=== PATIENT | female | born 2000 | race Caucasian/White ===

== ENCOUNTER 2022-12-02 16:23 | Emergency (ER) | payer OTHER, SELFPAY ==
--- NOTE | 2022-12-02 16:24 | ED.URI ---
HPI - URI/Sore Throat General Chief Complaint: Upper Respiratory Infection Stated Complaint: congestion,runny nose,sinus pressure Time Seen by Provider: 12/02/22 16:24 Source: patient Mode of arrival: ambulatory Limitations: no limitations History of Present Illness HPI Narrative: Chirag is a 22-year-old female patient presenting to the clinic today with complaints of cough, congestion, runny nose, sinus pressure x2 weeks. She reports she is blowing out green nasal drainage. States that she has tried Flonase, [id number] antihistamine, Sudafed, and sinus rinses. MD elicited complaint: cough, rhinorrhea, nasal congestion and sinus pain Related Data Home Medications Medication Instructions Recorded Confirmed albuterol sulfate 90 mcg/actuation 1 inh inhalation Q4-6H PRN Wheezing 10/27/22 12/02/22 breath activated powder inhaler cholecalciferol (vitamin D3) 1,250 1,250 mcg PO WEEKLY 10/27/22 12/02/22 mcg (50,000 unit) capsule medroxyprogesterone 150 mg/mL 150 mg IM [id number] 10/27/22 12/02/22 intramuscular syringe (Depo-Provera) Allergies Allergy/AdvReac Type Severity Reaction Status Date / Time erythromycin base Allergy Unknown Verified 12/02/22 16:33 [From Pediazole] sulfisoxazole Allergy Unknown Verified 12/02/22 16:33 [From Pediazole] ERYTHROMYCIN ETHYLSUCCINATE Allergy Unknown Unknown Uncoded 12/02/22 16:34 SULFISOXAZOLE ACETYL Allergy Unknown Unknown Uncoded 12/02/22 16:34 Review of Systems Review of Systems: Pertinent positives per HPI. Patient denies any fever, chills, rash, visual changes, dizziness, shortness of breath, chest pain, palpitations, nausea, vomiting, diarrhea, constipation, abdominal pain, or any urinary issues. [facility] Family History Family History Father Depression Mother Asthma Grandparent Asthma Hypertension Grandparent Diabetes mellitus Hypertension Thyroid disorder Social History Social History Smoking status: Never smoker Alcohol intake: never Lack of Transportation: No Lack of Food: Never True Current Housing: I Have Housing Concerned About Future Housing: No Difficulty Paying Gas/Electric Bills: No Difficulty Paying for Meds: No Currently Unemployed: No Education: High School Diploma/GED Difficulty w/ Childcare or Family Care: No Comments At the time of my signature, I reviewed and agree with the nursing past medical, surgical, social, and family history. There is no relevant family history pertinent to the patient complaint. Exam Narrative: General: Well-developed, well nourished, in no apparent distress Head: Normocephalic, atraumatic Eyes: Pupils equally round and reactive to light bilaterally, EOM intact, sclera and conjunctive clear, no discharge, lids normal Ears: TMs intact and congested, ear canals clear, no drainage, grossly hearing normal. Nose: Nares patent, green nasal discharge, moderate inflammation, maxillary and frontal sinus tenderness. Mouth: Oral pharynx without lesions or masses, good dentition, MMM. Postnasal drip Neck: Supple, trachea midline, no enlargement of anterior or posterior cervical nodes, no thyroid masses or goiter palpable. Cardio: Regular rate and rhythm, s1 and s2 normal, no murmur appreciated. Resp: Clear to auscultation bilaterally, no rhonchi, rales, wheezing or rubs Course Course Emergency Course: Portions of this record may have been created with voice recognition software. Level of Care: Express Care Visit Vital Signs Vital signs: Vital signs reviewed MDM - URI/Sore Throat MDM Narrative Medical decision making narrative: At the time of visit patient is resting comfortably on the exam table. I suspect patient has acute bacterial rhinosinusitis. Prescription for Augmentin and prednisone was sent to the pharmacy and supportive measure
[2022-12-02 16:34] VITALS: BP 122/86; PULSE 95; RESP 16; TEMP 36.9; O2SAT 100
[2022-12-02 16:35] VITALS: BP 122/86; PULSE 95; RESP 16; TEMP 36.9; O2SAT 100
== END 2022-12-02 16:44 | disposition home or self-care (01) ==
PROVIDERS: Emergency Provider Nurse Practitioner Family; PCP Pediatrics
DX: J01.90 Acute sinusitis, unspecified (principal)
CPT/HCPCS: 99213; G0463

== ENCOUNTER 2023-02-20 16:49 | Emergency (ER) | payer OTHER, SELFPAY ==
[2023-02-20 17:05] VITALS: BP 114/80; PULSE 121; RESP 16; TEMP 36.8; O2SAT 99
--- NOTE | 2023-02-20 17:05 | ED.URI ---
HPI - URI/Sore Throat General Chief Complaint: Upper Respiratory Infection Stated Complaint: Strep symptoms Time Seen by Provider: 02/20/23 17:05 Source: patient, RN notes reviewed and old records reviewed Mode of arrival: ambulatory Limitations: no limitations History of Present Illness HPI Narrative: 22-year-old female presents to the [facility] with complaints of a sore throat since Monday. Had been taking Tylenol and Sudafed with no relief. Has a history of strep. Is scheduled to get her tonsils removed in April by Dr. Meraz Related Data Home Medications Medication Instructions Recorded Confirmed cholecalciferol (vitamin D3) 1,250 1,250 mcg PO WEEKLY 10/27/22 02/20/23 mcg (50,000 unit) capsule medroxyprogesterone 150 mg/mL 150 mg IM [id number] 10/27/22 02/20/23 intramuscular syringe (Depo-Provera) Allergies Allergy/AdvReac Type Severity Reaction Status Date / Time erythromycin base Allergy Unknown Verified 02/20/23 17:05 [From Pediazole] sulfisoxazole Allergy Unknown Verified 02/20/23 17:05 [From Pediazole] ERYTHROMYCIN ETHYLSUCCINATE Allergy Unknown Unknown Uncoded 02/20/23 17:05 SULFISOXAZOLE ACETYL Allergy Unknown Unknown Uncoded 02/20/23 17:05 Review of Systems Review of Systems: All systems reviewed & are unremarkable except as noted in HPI and below Constitutional: Constitutional: Reports no additional constitutional complaints Eyes: Eyes: Reports no additional eye complaints ENT: Reports as per HPI and Reports sore throat Cardiovascular: Cardiovascular: Reports no additional cardiovascular complaints, Denies chest pain and Denies dyspnea Respiratory: Respiratory: Reports no additional respiratory complaints, Denies chest congestion, Denies cough and Denies dyspnea Gastrointestinal: Gastrointestinal: Reports no additional gastrointestinal complaints, Denies abdominal pain, Denies nausea and Denies vomiting Musculoskeletal: Musculoskeletal: Reports no additional musculoskeletal complaints Integumentary/Breasts: Skin/Breast: Reports system reviewed and no additional complaints, except as docu Neurologic: Reports system reviewed and no additional complaints, except as documented Psychiatric: Psychiatric: Reports no additional psychiatric complaints Allergic/Immunologic: Allergic/Immunologic: Reports no additional allergic/immunologic complaints PMFSH Family History Family History Father Depression Mother Asthma Grandparent Asthma Hypertension Grandparent Diabetes mellitus Hypertension Thyroid disorder Social History Social History Smoking status: Never smoker Alcohol intake: never Lack of Transportation: No Lack of Food: Never True Current Housing: I Have Housing Concerned About Future Housing: No Difficulty Paying Gas/Electric Bills: No Difficulty Paying for Meds: No Currently Unemployed: No Education: High School Diploma/GED Difficulty w/ Childcare or Family Care: No Comments At the time of my signature, I reviewed and agree with the nursing past medical, surgical, social, and family history. There is no relevant family history pertinent to the patient complaint. Exam Const: General: cooperative, healthy appearing, comfortable, no acute distress, well developed, alert and well nourished Nutritional Appearance: well nourished Orientation/consciousness: patient oriented x3 Limitations: no limitations HENMT: Head: normal to inspection Ears: hearing grossly normal bilaterally and external ears normal Face/Nose/Sinus: Normal external nose present, Normal nares present, Normal nasal mucous membranes and turbinates present and normal facial exam Face and sinus: normal facial exam Mouth: Yes Normal oral and palatal mucosa present, Yes lip normal and Yes moist mucous membranes Throat: posterior oropharynx normal, uvula midline and
[2023-02-20 17:06] VITALS: BP 114/80; PULSE 121; RESP 16; TEMP 36.8; O2SAT 99
== END 2023-02-20 17:23 | disposition home or self-care (01) ==
PROVIDERS: Emergency Provider Nurse Practitioner
DX: J02.0 Streptococcal pharyngitis (principal)
CPT/HCPCS: 87880; 99213; G0463

== ENCOUNTER 2023-04-18 00:11 | Day surgery (SDC) | payer OTHER, SELFPAY ==
[2023-04-05 12:28] VITALS: BMI 25.8
--- NOTE | 2023-04-05 12:32 | PC.NURSE ---
Report to the Outpatient Waiting Room, entrance under the green pavilion located off [facility], at time 0700 on date 04/18/23. Planned Procedure Time: 0900. Time changes happen often and if your time is changed the preop area will call you the afternoon before. - You and your visitor will be asked to self-screen and do not enter if you have any COVID symptoms. - A mask is optional within the hospital at this time. Patients may have clear liquids (water, carbonated beverages, clear teas, apple juice) until 3 hours prior to surgery with a maximum of 20 ounces. - No food from midnight until time of surgery Take the following medications with a SIP of water the morning of surgery: NONE DO NOT STOP ANY OF YOUR OTHER PRESCRIPTION MEDICATIONS PRIOR TO SURGERY ?EXCEPT THE FOLLOWING Medications to discontinue per physician: N/A Date to take last dose: N/A Please no make-up, nail [place] citizen, hairspray, perfume, deodorant, or body powder the day of surgery. No jewelry (including any body piercings) or valuables the day of surgery, leave them at home. Please take a shower or bath the night before, or the morning of, surgery with an antibacterial soap. Wear comfortable, loose fitting clothing. - Jewelry must be removed prior to entering the operating room. Rings and piercings that are not removed may be cut off. - The hospital will not accept responsibility for valuables. - Please leave all valuables, including medications, at home the day of surgery. If you are going home after surgery, a licensed tow truck driver must drive you home. - NO public transportation without another adult if you receive anesthesia. - We recommend that an adult stay with you for 24 hours following discharge. - We also recommend that you do not drive, make important decision, drink alcoholic beverages, or take any drugs that were not prescribed by your health care provider for at least 24 hours after your discharge time. Follow any additional instructions given to you from your surgeon. If you or anyone in your household have experienced Covid symptoms in the past week, please notify your surgeon or the nurse liaison at the phone number below for possible testing. Telephone instructions given to PT - AMOR OSMAN and asked if any additional questions and then verbalized understanding. Patient advised to call surgeon office or pre surgery nurse liaison [phone] if any additional questions.
--- NOTE | 2023-04-17 15:18 | PM.IMHP ---
H&P: HPI History of Present Illness Date/Time: 04/17/23 15:18 Chief Complaint: recurrent strep adenoid hypertrophy snoring tonsillar hypertrophy Narrative: planned procedure Review of Systems Review of Systems: All systems reviewed & are unremarkable except as noted in HPI and below PMFSH Family History Family History Father Depression Mother Asthma Grandparent Asthma Hypertension Grandparent Diabetes mellitus Hypertension Thyroid disorder Social History Social History Years smoked: 6 Smoking status: Former smoker Tobacco type: cigarettes Smoking end date: 07/03/18 Alcohol intake: current Alcohol use details: VERY RARE Substance use: never Substance use type: does not use Lack of Transportation: No Lack of Food: Never True Current Housing: I Have Housing Concerned About Future Housing: No Difficulty Paying Gas/Electric Bills: No Difficulty Paying for Meds: No Currently Unemployed: No Education: High School Diploma/GED Difficulty w/ Childcare or Family Care: No Living arrangements: with friend(s) Additional living arrangements comments: BOYFRIEND Spiritual care concerns: No Meds Home Medications and Allergies Home Medications Medication Instructions Recorded Confirmed Type medroxyprogesterone 150 mg/mL 150 mg IM [id number] 10/27/22 04/05/23 History intramuscular syringe (Depo-Provera) Allergies Allergy/AdvReac Type Severity Reaction Status Date / Time erythromycin base Allergy Unknown Verified 04/05/23 12:27 [From Pediazole] sulfisoxazole Allergy Unknown Verified 04/05/23 12:27 [From Pediazole] Exam Narrative: large tonsils large adenoid Assessment and Plan Assessment and plan (1) Adenoid hypertrophy: Code(s): J35.2 - Hypertrophy of adenoids Status: Acute Assessment and Plan: ?planned OR tonsillectomy adenoidectomy risks discussed including bleeding infection damage to surrounding structures in here risks narcotic use damage to any structure above the clavicles by myself damage to any structure during the induction and remains of anesthesia including vocal cords.? 3-5% chance of postoperative bleeding change in swallow change in taste these can be permanent and or take months to resolve. (2) Snoring: Code(s): R06.83 - Snoring Status: Acute (3) Recurrent tonsillitis: Code(s): J03.91 - Acute recurrent tonsillitis, unspecified Status: Acute
[2023-04-18] VITALS (9 sets, daily range): BP systolic 116–127; BP diastolic 68–92; PULSE 85–114; RESP 15–20; TEMP 37–37.2; O2SAT 98–100
--- NOTE | 2023-04-18 07:18 | WPDHPUPDATE1 ---
History and Physical Update Update Date/Time: 04/18/23 07:18 History and Physical has been reviewed, including an updated exam of the patient. There are NO changes in the patient's condition. Risks, benefits, and alternatives have been discussed and questions answered. Patient agrees to proceed with procedure.
[2023-04-18] MEDS: LACTATED RINGERS 1,000 ML 30 ML IV CONT ×2 (07:50→10:40)
[2023-04-18] MEDS: ACETAMINOPHEN 500 MG TABLET 1000 MG PO (08:05)
[2023-04-18] MEDS: SCOPOLAMINE 1.5 MG PATCH TRANSDERM (08:05)
--- NOTE | 2023-04-18 08:26 | P.PNAN_ITS ---
Anes - Initial Pre Proc Eval Procedure: Operation Date: 04/18/23 09:00 Proposed Procedures p Tonsillectomy And Adenoidectomy - Jb Meraz MD Date/Time: 04/18/23 08:26 Surgeon: Jb Meraz MD Pre Op Diagnosis: Chr Tonsillitis, Hypertrophic Adenoids Patient Data Age: 23 Gender: F Height: 1.7 m Weight: 74.8 kg Last Vital Signs Temp 37.2 C 04/18/23 08:05 Pulse 108 H 04/18/23 08:05 Resp 16 04/18/23 08:05 BP 116/79 04/18/23 08:05 Pulse Ox 100 04/18/23 08:05 O2 Del Method Room Air 04/18/23 08:05 Allergies Allergy/AdvReac Type Severity Reaction Status Date / Time erythromycin base Allergy Unknown Verified 04/18/23 08:06 [From Pediazole] sulfisoxazole Allergy Unknown Verified 04/18/23 08:06 [From Pediazole] Home Medications Medication Instructions Recorded Confirmed Type medroxyprogesterone 150 mg/mL 150 mg IM [id number] 10/27/22 04/05/23 History intramuscular syringe (Depo-Provera) Patient hx anesthesia problems: none Family hx anesthesia problems: none Results Review: All pre-operative results and documents have been reviewed as part of the pre- operative evaluation. [facility] Family History Family History Father Depression Mother Asthma Grandparent Asthma Hypertension Grandparent Diabetes mellitus Hypertension Thyroid disorder Social History Social History Years smoked: 6 Smoking status: Former smoker Tobacco type: cigarettes Smoking end date: 07/03/18 Alcohol intake: current Alcohol use details: VERY RARE Substance use: never Substance use type: does not use Lack of Transportation: No Lack of Food: Never True Current Housing: I Have Housing Concerned About Future Housing: No Difficulty Paying Gas/Electric Bills: No Difficulty Paying for Meds: No Currently Unemployed: No Education: High School Diploma/GED Difficulty w/ Childcare or Family Care: No Living arrangements: with friend(s) Additional living arrangements comments: BOYFRIEND Spiritual care concerns: No Anes - Eval Final PreProcedure Day of Procedure 04/18/23 08:26 Patient weight: normal Heart: regular rate and rhythm Lungs: clear to auscultation Airway: Mallampati scale class 1 Neurological: alert and oriented Last oral intake: >/= 8 hours ASA classification: II Emergent: no Anesthetic plan: proceed Anesthesia type and monitoring: general ETT and standard monitoring Results Review: All pre-operative results and documents have been reviewed as part of the pre- operative evaluation. Informed Consent: The patient's anesthetic plan and its attendant risks and benefits were discussed with the patient/family/POA. Questions were solicited and answers provided to the satisfaction of the patient/family/POA.
[2023-04-18] MEDS: fentaNYL CITRATE INJ (*CRX) 100 MCG/2 ML VIAL 25 MCG IV PUSH ×5 (10:49→12:09)
--- NOTE | 2023-04-18 10:51 | W.PM.PROC2 ---
Procedure Note - Detailed Date of Procedure 04/18/23 Pre-op Diagnosis Chr Tonsillitis, Hypertrophic Adenoids Post-op Diagnosis Same Procedure Performed Tonsillectomy Surgeon Jb Meraz MD Anesthesia General Indications See above Findings Very very vascularized large tonsils. Adenoids absent Description of Procedure Patient identified consent verified preop. Patient brought to the operating room. Time-out performed. General anesthesia induced endotracheal tube secured. Patient prepped draped position procedure confirmed. Second time-out performed. McIvor mouth gag inserted reveal tonsils described above. They were removed bilaterally in the extracapsular plane using Bovie electrocautery at a setting of 8. Any bleeding was controlled Bovie suction electrocautery setting of 10 12 in 15. The right side superiorly had a very large bridging vein entering the tonsil which had to be taken through the superior pole or 2 the superior pole. This took about 10 minutes of cautery. Bleeding was still minimal about 5 cc of blood loss. After the tonsils were out red rubber catheters inserted adenoids were examined they were absent. Red rubber catheters removed. McIvor mouth gag lowered for 30 seconds and reopened to reveal no further bleeding. Patient tolerated the procedure well blood loss about 5 cc. No complications. Care the patient given back to Anesthesiology I performed all dictated portions of the procedure. Estimated Blood Loss 5 Drains No Packing No Pathology Yes Complications No immediate complications Condition Stable Disposition PACU [facility] - Charge Forward: Surgery Billing
[2023-04-18] MEDS: ONDANSETRON INJ 4 MG/2 ML VIAL IV PUSH (11:26)
[2023-04-18] MEDS: diphenhydrAMINE HCl INJ 50 MG/ML VIAL 25 MG IV PUSH (11:59)
--- NOTE | 2023-04-18 12:02 | SUR.PHASEII ---
Addendum entered by Becky Lafleur RN 04/18/23 12:19: 1200 Pt had emesis x 1 Original Note: Pt nauseous despite scopalamine patch and zofran given. Pt states chronic nausea due to acid reflux. Dr. Ballard anesthesia notified. New order received for Benadryl.
== END 2023-04-18 13:08 | disposition home or self-care (01) ==
PROVIDERS: Visit Provider Otolaryngology
PROC: (CPT 42826; principal; 2023-04-18 09:00)
DX: J35.01 Chronic tonsillitis (principal); Z87.891 Personal history of nicotine dependence
CPT/HCPCS: 42826; 88304; A9270; J1100; J1200; J2250; J2405; J2704; J3010; J7120

== ENCOUNTER 2023-06-11 09:40 | Emergency (ER) | payer OTHER, SELFPAY ==
[2023-06-11 09:53] VITALS: BP 114/83; PULSE 103; RESP 16; TEMP 37.1; O2SAT 99
--- NOTE | 2023-06-11 10:16 | ED.URI ---
HPI - URI/Sore Throat General Chief Complaint: Upper Respiratory Infection Stated Complaint: Upper respiratory infection Time Seen by Provider: 06/11/23 10:07 Source: patient and RN notes reviewed Mode of arrival: ambulatory Limitations: no limitations History of Present Illness HPI Narrative: Patient presents today with 2 week history of cough, congestion, sinus pressure. Denies fever or sore throat. She had her tonsils removed approximately 2 months ago. She has been taking Sudafed and Benadryl as willingness using her albuterol inhaler with mild relief Related Data Home Medications Medication Instructions Recorded Confirmed medroxyprogesterone 150 mg/mL 150 mg IM [id number] 10/27/22 04/05/23 intramuscular syringe (Depo-Provera) Allergies Allergy/AdvReac Type Severity Reaction Status Date / Time erythromycin base Allergy Unknown Verified 04/18/23 08:06 [From Pediazole] sulfisoxazole Allergy Unknown Verified 04/18/23 08:06 [From Pediazole] Review of Systems Review of Systems: CONSTITUTIONAL: Denies body aches, fever, chills, or sweats. EYES: Denies visual changes, redness, or discharge. ENT: Denies rhinorrhea, sore throat, or otalgia.+ congestion, sinus pressure CARDIOVASCULAR: Denies chest pain, palpitations, or edema. RESPIRATORY: Denies dyspnea.+ cough GASTROINTESTINAL: Denies abdominal pain, nausea, vomiting, or diarrhea. GENITOURINARY: Denies dysuria or hematuria. SKIN: Denies rash, itching, or wounds. MUSCULOSKELETAL: Denies back pain, joint pain, or myalgia. NEUROLOGIC: Denies headache, numbness, tingling, or weakness. PSYCH: Denies depression or anxiety. [facility] Surgical History Surgical History (Updated 06/11/23 @ 10:17 by Darleen Arnold, FRANDY, MAGGI) Hx of tonsillectomy Family History Family History Father Depression Mother Asthma Grandparent Asthma Hypertension Grandparent Diabetes mellitus Hypertension Thyroid disorder Social History Social History Years smoked: 6 Smoking status: Former smoker Tobacco type: cigarettes Smoking end date: 07/03/18 Alcohol intake: current Alcohol use details: VERY RARE Substance use: never Substance use type: does not use Lack of Transportation: No Lack of Food: Never True Current Housing: I Have Housing Concerned About Future Housing: No Difficulty Paying Gas/Electric Bills: No Difficulty Paying for Meds: No Currently Unemployed: No Education: High School Diploma/GED Difficulty w/ Childcare or Family Care: No Living arrangements: with friend(s) Additional living arrangements comments: BOYFRIEND Spiritual care concerns: No Comments At time of signature, I have reviewed and agree with nursing past medical, surgical, social and family history unless otherwise noted. Please see nursing chart for further information. There is no relevant family history pertinent to the presenting complaint Exam Narrative: GENERAL: Mildly ill-appearing, well-nourished, and in no acute distress. HEAD: Normocephalic, atraumatic. EYES: EOMI. No redness or drainage. Conjunctivae normal. ENT: Mucous membranes pink and moist. Nares congested with rhinorrhea. Bilateral maxillary sinus tenderness. tMs normal bilaterally. Throat normal. Uvula midline. NECK: Normal AROM. Supple. No lymphadenopathy. CHEST: No respiratory distress. Clear to auscultation. HEART: Regular rate and rhythm. No murmur appreciated. EXTREMITIES: Normal range of motion. No edema. SKIN: Warm, dry, no rash. Capillary refill normal. Normal skin turgor. NEURO: No focal deficits. Alert and oriented x3. Gait steady. PSYCH: Normal affect. No signs of depression or anxiety. Course Course Level of Care: Express Care Visit Vital Signs Vital signs: Vital Signs Temperature 98.7 F 06/11/23 09:53 Pul
== END 2023-06-11 10:22 | disposition home or self-care (01) ==
PROVIDERS: Emergency Provider Nurse Practitioner
DX: J40 Bronchitis, not specified as acute or chronic (principal); J01.00 Acute maxillary sinusitis, unspecified; Z87.891 Personal history of nicotine dependence
CPT/HCPCS: 99213; G0463

== ENCOUNTER 2023-08-07 16:35 | Emergency (ER) | payer OTHER, SELFPAY ==
[2023-08-07 16:40] VITALS: BP 134/86; PULSE 102; RESP 16; TEMP 36.8; O2SAT 99
--- NOTE | 2023-08-07 17:15 | ED.URI ---
HPI - URI/Sore Throat General Chief Complaint: Upper Respiratory Infection Stated Complaint: Congestion Time Seen by Provider: 08/07/23 17:05 Source: patient and RN notes reviewed Mode of arrival: ambulatory Limitations: no limitations History of Present Illness HPI Narrative: Patient presents today complaining of a 6 day history of congestion, sinus pressure, postnasal drip, left ear pain, upper teeth pain. Denies fever sore throat. She has been taking Sudafed, Benadryl, buttocks, DayQuil, NyQuil with some short-term relief. Related Data Home Medications Medication Instructions Recorded Confirmed medroxyprogesterone 150 mg/mL 150 mg IM [id number] 10/27/22 04/05/23 intramuscular syringe (Depo-Provera) Allergies Allergy/AdvReac Type Severity Reaction Status Date / Time erythromycin base Allergy Unknown Verified 04/18/23 08:06 [From Pediazole] sulfisoxazole Allergy Unknown Verified 04/18/23 08:06 [From Pediazole] Review of Systems Review of Systems: CONSTITUTIONAL: Denies body aches, fever, chills, or sweats. EYES: Denies visual changes, redness, or discharge. ENT: Denies rhinorrhea, sore throat. + congestion, sinus pressure, postnasal drip, left ear pain CARDIOVASCULAR: Denies chest pain, palpitations, or edema. RESPIRATORY: Denies cough or dyspnea. GASTROINTESTINAL: Denies abdominal pain, nausea, vomiting, or diarrhea. GENITOURINARY: Denies dysuria or hematuria. SKIN: Denies rash, itching, or wounds. MUSCULOSKELETAL: Denies back pain, joint pain, or myalgia. NEUROLOGIC: Denies headache, numbness, tingling, or weakness. PSYCH: Denies depression or anxiety. [facility] Surgical History Surgical History Hx of tonsillectomy Family History Family History Father Depression Mother Asthma Grandparent Asthma Hypertension Grandparent Diabetes mellitus Hypertension Thyroid disorder Social History Social History Years smoked: 6 Smoking status: Former smoker Tobacco type: cigarettes Smoking end date: 07/03/18 Alcohol intake: current Alcohol use details: VERY RARE Substance use: never Substance use type: does not use Lack of Transportation: No Lack of Food: Never True Current Housing: I Have Housing Concerned About Future Housing: No Difficulty Paying Gas/Electric Bills: No Difficulty Paying for Meds: No Currently Unemployed: No Education: High School Diploma/GED Difficulty w/ Childcare or Family Care: No Living arrangements: with friend(s) Additional living arrangements comments: BOYFRIEND Spiritual care concerns: No Comments At time of signature, I have reviewed and agree with nursing past medical, surgical, social and family history unless otherwise noted. Please see nursing chart for further information. There is no relevant family history pertinent to the presenting complaint Exam Narrative: GENERAL: Mildly ill-appearing, well-nourished, and in no acute distress. HEAD: Normocephalic, atraumatic. EYES: EOMI. No redness or drainage. Conjunctivae normal. ENT: Mucous membranes pink and moist. Nares congested. Bilateral nasal turbinates are erythematous with purulent discharge. Bilateral frontal and maxillary sinus tenderness. No rhinorrhea. TMs normal bilaterally. Throat normal. Uvula midline. NECK: Normal AROM. Supple. No lymphadenopathy. CHEST: No respiratory distress. Clear to auscultation. HEART: Regular rate and rhythm. No murmur appreciated. EXTREMITIES: Normal range of motion. No edema. SKIN: Warm, dry, no rash. Capillary refill normal. Normal skin turgor. NEURO: No focal deficits. Alert and oriented x3. Gait steady. PSYCH: Normal affect. No signs of depression or anxiety. Course Course Level of Care: Express Care Visit Vital Signs
== END 2023-08-07 17:22 | disposition home or self-care (01) ==
PROVIDERS: Emergency Provider Nurse Practitioner
DX: J01.90 Acute sinusitis, unspecified (principal); Z87.891 Personal history of nicotine dependence
CPT/HCPCS: 99213; G0463

== ENCOUNTER 2024-04-20 00:21 | Emergency (ER) | payer OTHER, SELFPAY ==
[2024-04-20] VITALS (7 sets, daily range): BP systolic 129; BP diastolic 79; PULSE 83–98; RESP 10–20; TEMP 36.6; O2SAT 98–100
--- NOTE | ~2024-04-20 | XR_ITS ---
EXAMINATION: XR chest 1V portable 04/20/2024 01:10 INDICATION: EXAMINATION: XR chest 1V portable 04/20/2024 01:10 INDICATION: Chest pain PROCEDURE: AP portable chest COMPARISON: 01/14/2019 FINDINGS: The lungs are clear. The cardiomediastinal silhouette is within normal limits. There are no pleural effusions. There is no pneumothorax suspected. IMPRESSION: 1: NO ACUTE CARDIOPULMONARY DISEASE. PROCEDURE: COMPARISON: FINDINGS: The lungs are clear. The cardiomediastinal silhouette is within normal limits. There are no pleural effusions. There is no pneumothorax suspected. IMPRESSION: 1: NO ACUTE CARDIOPULMONARY DISEASE. Reviewed, dictated and finalized at location B. IMPRESSION: 1: NO ACUTE CARDIOPULMONARY DISEASE. PROCEDURE: COMPARISON: FINDINGS: The lungs are clear. The cardiomediastinal silhouette is within norm al limits. There are no pleural effusions. There is no pneumothorax suspected .
--- NOTE | 2024-04-20 00:46 | ECG_ITS ---
Test Date: 2024-04-20 01:18:45 Measurements Intervals Ord Rate: 85 P: 16 NV: 136 QRS: 97 QRSD: 88 T: 40 QT: 367 QTc: 439 Interpretive Statements SINUS RHYTHM BORDERLINE RIGHT AXIS DEVIATION [QRS AXIS > 90] LOW-VOLTAGE QRS BORDERLINE ECG No previous ECG available for comparison Electronically Signed On 04-20-2024 09:50:20 CDT by Gal Tate M.D.
--- NOTE | 2024-04-20 00:46 | ED.GENADULT ---
HPI - General Adult General Chief complaint: Unspecified Stated complaint: severe pain left shoulder pain, going into back Time Seen by Provider: 04/20/24 00:37 Source: patient Mode of arrival: ambulatory Limitations: no limitations History of Present Illness HPI narrative: 24-year-old here with left shoulder pain. Describes it is the back of her left shoulder nor left upper back. Started this morning when she woke up from sleep. Progressively worsened throughout the day. Cannot recall any injury. It feels a bit better when she squeezes the back of her arm. Nothing seems to make it much worse. Related Data Allergies Allergy/AdvReac Type Severity Reaction Status Date / Time erythromycin base Allergy Unknown Verified 04/20/24 00:30 [From Pediazole] sulfisoxazole Allergy Unknown Verified 04/20/24 00:30 [From Pediazole] Review of Systems Review of Systems: All systems reviewed & are unremarkable except as noted in HPI and below PMFSH Surgical History Surgical History Hx of tonsillectomy Family History Family History Father Depression Mother Asthma Grandparent Asthma Hypertension Grandparent Diabetes mellitus Hypertension Thyroid disorder Social History Social History Years smoked: 6 Smoking status: Former smoker Tobacco type: cigarettes Smoking end date: 07/03/18 Alcohol intake: current Alcohol use details: VERY RARE Substance use: never Substance use type: does not use Lack of Transportation: No Lack of Food: Never True Current Housing: I Have Housing Concerned About Future Housing: No Difficulty Paying Gas/Electric Bills: No Difficulty Paying for Meds: No Currently Unemployed: No Education: High School Diploma/GED Difficulty w/ Childcare or Family Care: No Living arrangements: with friend(s) Additional living arrangements comments: BOYFRIEND Spiritual care concerns: No Exam Narrative: Constitutional: Generally well appearing, no acute distress Head: Atraumatic, no deformities. Eyes: Pupils equal, round, and reactive to light. Neck: Supple, no tracheal deviation, no JVD. ENMT: Mucous membranes moist Cardiovascular: S1, S2 auscultated. No murmurs, rubs, or gallops. No S3/S4. Normal Distal pulses. No peripheral edema. Respiratory: Lung sounds equal. No wheezes, rales, or rhonchi. Gastrointestinal: Abdomen was soft, nondistended Musculoskeletal: Normal muscle tone and bulk. No obvious deformities over extremities. Mild pain with range of motion left shoulder. No bony tenderness Skin: No rashes. Neurological: Strength 5/5 in extremities. Distal sensation intact. Mental Status: Awake, alert and oriented x3. Follows commands Course Vital Signs Vital signs: Vital Signs Temperature 36.6 C 04/20/24 00:27 Pulse Rate 98 04/20/24 00:27 Respiratory Rate 12 04/20/24 00:27 Blood Pressure 129/79 04/20/24 00:27 Pulse Oximetry 99 04/20/24 00:27 Oxygen Delivery Room Air 04/20/24 00:27 Temperature 36.6 C 04/20/24 00:27 Pulse Rate 83 04/20/24 01:30 Respiratory Rate 17 04/20/24 01:30 Blood Pressure 129/79 04/20/24 00:27 Pulse Oximetry 99 04/20/24 01:30 Oxygen Delivery Room Air 04/20/24 00:27 Medical Decision Making MDM Narrative Medical decision making narrative: 24-year-old with left posterior shoulder and upper back pain. On exam she is tearful. Vital regular. Generally well appearing. Has pain with range of motion of the left shoulder slightly but her pain is somewhat vague, posterior aspect of the left upper arm and shoulder and upper back. Hard to elicit on exam. Seems extremely unlikely to be cardiac related given young otherwise healthy patient, not classic location for pain given it is all posterior. Suspect more likely
[2024-04-20] MEDS: LIDOCAINE 5% PATCH 1 PATCH TRANSDERM (01:20)
[2024-04-20] MEDS: KETOROLAC 30 MG/ML VIAL (*BKC) IM (01:22)
[2024-04-20] MEDS: ORPHENADRINE CITRATE 100 MG TABLET.ER PO (02:28)
[2024-04-20] MEDS: MORPHINE SULFATE INJ (*CRX) 10 MG/ML AMP 4 MG IM (02:28)
== END 2024-04-20 03:16 | disposition home or self-care (01) ==
PROVIDERS: Emergency Provider Emergency Medicine
DX: M25.512 Pain in left shoulder (principal); Z87.891 Personal history of nicotine dependence; R94.31 Abnormal electrocardiogram [ECG] [EKG]
CPT/HCPCS: 71045; 93005; 96372; 99284; A9270; J1885; J2270

== ENCOUNTER 2024-09-02 11:17 | Emergency (ER) | payer OTHER, SELFPAY ==
[2024-09-02 11:26] VITALS: BP 125/83; PULSE 98; RESP 18; TEMP 36.8; O2SAT 100
--- NOTE | 2024-09-02 11:35 | ED.URI ---
HPI - URI/Sore Throat General Chief Complaint: Upper Respiratory Infection Stated Complaint: Flu Symptoms Time Seen by Provider: 09/02/24 11:30 Source: patient Mode of arrival: ambulatory Limitations: no limitations History of Present Illness HPI Narrative: Mateusz is a 24-year-old female patient presenting to the clinic today with complaints possible flu-like symptoms. She reports she has had felt fever, chills, body aches, cough, nasal congestion, sinus pressure, and sore throat. Symptoms for approximately 6 days. States she is coughing up some dark green/brown phlegm. Denies any chest pain or shortness of breath. MD elicited complaint: fever, cough, sore throat and nasal congestion Related Data Allergies Allergy/AdvReac Type Severity Reaction Status Date / Time erythromycin base (From Allergy Unknown Verified 09/02/24 11:24 Pediazole) sulfisoxazole (From Allergy Unknown Verified 09/02/24 11:24 Pediazole) Review of Systems Review of Systems: Pertinent positives per HPI. Patient denies any fever, chills, rash, headache, visual changes, dizziness, cough, shortness of breath, chest pain, palpitations, nausea, vomiting, diarrhea, constipation, abdominal pain, or any urinary issues. [facility], [facility] Surgical History Surgical History Hx of tonsillectomy Family History Family History Father Depression Mother Asthma Grandparent Asthma Hypertension Grandparent Diabetes mellitus Hypertension Thyroid disorder Social History Social History Years smoked: 6 Smoking status: Former smoker Tobacco type: cigarettes Smoking end date: 07/03/18 Alcohol intake: current Alcohol use details: VERY RARE Substance use: never Substance use type: does not use Lack of Transportation: No Lack of Food: Never True Current Housing: I Have Housing Concerned About Future Housing: No Difficulty Paying Gas/Electric Bills: No Difficulty Paying for Meds: No Currently Unemployed: No Education: High School Diploma/GED Difficulty w/ Childcare or Family Care: No Living arrangements: with friend(s) Additional living arrangements comments: BOYFRIEND Spiritual care concerns: No Comments At the time of my signature, I reviewed and agree with the nursing past medical, surgical, social, and family history. There is no relevant family history pertinent to the patient complaint. Exam Narrative: General: Well-developed, well nourished, in no apparent distress Head: Normocephalic, atraumatic Eyes: Pupils equally round and reactive to light bilaterally, EOM intact, sclera and conjunctive clear, no discharge, lids normal Ears: TMs intact and clear, ear canals clear, no drainage, grossly hearing normal. Nose: Nares patent, green nasal discharge, moderate inflammation, maxillary sinus tenderness. Mouth: Oral pharynx red without lesions or masses, good dentition, MMM. Postnasal drip, tonsils surgically absent Neck: Supple, trachea midline, no enlargement of anterior or posterior cervical nodes, no thyroid masses or goiter palpable. Cardio: Regular rate and rhythm, s1 and s2 normal, no murmur appreciated. Resp: Clear to auscultation bilaterally, no rhonchi, rales, wheezing or rubs Course Course Emergency Course: Portions of this record may have been created with voice recognition software. Level of Care: Express Care Visit Vital Signs Vital signs: Vital Signs Temperature 36.8 C 09/02/24 11:26 Pulse Rate 98 09/02/24 11:26 Respiratory Rate 18 09/02/24 11:26 Blood Pressure 125/83 09/02/24 11:26 Pulse Oximetry 100 09/02/24 11:26 Oxygen Delivery Room Air 09/02/24 11:26 Temperature 36.8 C 09/02/24 11:26 Pulse Rate 98 09/02/24 11:26 Respiratory Rate 18 09/02/24 11:26 Blood Pressure 125/83 09/02/24 11:26 Pulse Oximetry 100 09/02/24 11:26 Oxygen Delivery Room Air 09/02/24 11:26 Vital signs reviewed MDM - URI/Sore Throat MDM Narrative Medical decision making narrative: At the time of visit patient is resting comfortably on the exam table. Patient appears to be nontoxic. Labs: COVID, influenza, and strep test were all negative in the clinic today. We will send strep for culture. Plan: I suspect patient has URI with cough and congestion and postnasal drip. Prescription for prednisone was sent to the pharmacy. Supportive measures were discussed with the patient and they voiced understanding discharge instructions and agrees to treatment plan. Return precautions reviewed Differential Diagnosis Differential diagnosis: Likely upper respiratory infection, otitis media, sinusitis, viral infection, bronchitis, influenza, pharyngitis and other (COVID) Discharge Plan Discharge Clinical Impression: Upper respiratory infection with cough and congestion, PND (post-nasal drip) Patient Disposition: Home, Self-Care Condition: Stable Instructions: Antibiotic Form, Cold Symptoms (ED), Postnasal Drip (DC) Additional Instructions: Take prescription medications only as prescribed-prednisone Increase fluids and stay well hydrated Tylenol/motrin for pain/fever Flonase and OTC antihistamines as directed Vicks vapor rub to open sinuses Sinus rinses for congestion Cepacol spray, cough drops, throat lozenges, warm tea with honey/lemon, gargle salt water to soothe throat BRAT diet for diarrhea Clear liquids x 24 hours then advance as tolerated for nausea/vomiting Go to the ED if you develop a worsening in your condition- high fever not controlled by Tylenol or Motrin, dehydration, weakness, lethargy, shortness of breath, or chest pain. Follow up with your PCP in 3-5 days if symptoms persist. Patient Language: Albanian Prescriptions: New prednisone 20 mg tablet 40 mg PO DAILY 5 Days Qty: 10 0RF Follow-up/Referrals: PHYSICIAN,INSTRUCTIONAL DESIGN CONSULTANT [Primary Care Provider] - Stand Alone Forms: Work/School Release IP Time of Disposition: 11:55 Quality NIHSS Nursing Documentation ED NIHSS nursing documentation: reviewed/agree
[2024-09-02 11:49] LABS: EDSTREPNEGPOS1 Negative (Negative)
[2024-09-02 11:57] LABS: EDCOVIDSCREEN Negative (Negative); EDINFLUASCREEN Negative (Negative); EDINFLUBSCREEN Negative (Negative)
== END 2024-09-02 12:10 | disposition home or self-care (01) ==
PROVIDERS: Emergency Provider Nurse Practitioner Family
DX: J02.0 Streptococcal pharyngitis (principal); R05.9 Cough, unspecified; R09.82 Postnasal drip; Z20.822 Contact with and (suspected) exposure to COVID-19; Z87.891 Personal history of nicotine dependence
CPT/HCPCS: 87081; 87426; 87804; 87880; 99213; G0463